=== PATIENT | male | born 2000 | race Caucasian/White ===

== ENCOUNTER 2022-09-23 11:06 | Day surgery (SDC) | payer OTHER ==
[~2022-09-23] VITALS: Ht 162.6 cm; Wt 82.6 kg
[~2022-09-23 11:06] MED LIST: SERT25; [UNRECOGNIZED DRUG - OTHER]
--- NOTE | 2022-09-23 11:31 | NUR ---
Patient confirms NPO status and agrees with scheduled surgery. Pre-Op teaching done. Pt verbalizes understanding. Patient States Post-Procedure ride home has been arranged. History, Chart, Medications and Allergies reviewed before start of procedure.
[2022-09-23] MEDS ORDERED: Budeprion Xl300 MG PO (11:36)
--- NOTE | 2022-09-23 12:23 | NUR ---
2 MISSED ATTEMPTS BY ORD.RMA L FORE ARM, R HAND
--- NOTE | 2022-09-23 13:41 | NUR ---
09/23/22 1341 Inge Bosch 1MG EPIENEPHRINE ADDED TO 3000ML NACL FOR IRRIGATION
--- NOTE | 2022-09-23 17:35 | NUR ---
PT ARRIVED TO FLOOR FROM PACU. TRANSFERED TO BED FROM [facility] WITH SLIDE SHEET. TOLERATED WELL, REPORTS PAIN LEVEL OF 1-2 OUT OF 10. JOES WRAP TO LLE IS CDI. PT HAS FULL SENSATION IN LEFT FOOT AND MOVES TOES WELL, BRISK CAP REFILL AT THIS TIME. PT SATS MID 90'S ON ROOM AIR. HR IN THE 120'S. PT REPORTS FEELING TIRED AT THIS TIME, CALL LIGHT PROVIDED FOR PATIENT, HE IS ATTEMPTING TO SLEEP AT THIS TIME.
--- NOTE | 2022-09-24 04:42 | NUR ---
SHIFT SUMMARY PT POD [address] ORIF [address] DR[address] HOOVER AFTER SUSTAINING A GLF WHILE RIDING HIS SCOOTER. JOSE WRAP IN PLACE POST SURGERY. DRESSING IS C/D/I. PT REPORTS FULL SENSATION AT THIS TIME AND IS ABLE TO WIGGLE TOES. FEET WARM. PAIN IS WELL MANAGED WITH MEDS PER EMAR. PT HAD SOME POST OP NAUSEA THAT HAS SINCE RESOLVED. PT TOLERATING PO INTAKE. VITALS ARE STABLE, AND PT VOIDING.
[2022-09-24] MEDS ORDERED: HYDR1TAB94 PO (17:05)
== END 2022-09-24 17:31 | disposition home or self-care (01) ==
LOC: ORSCMMR 11:06 → ORD 12:30 → ORSCMMR 12:30 → SURS 17:21 → ORSCMMR 09-24 17:31
PROVIDERS: Orthopaedic Surgery
PROC: 0SQD4ZZ Repair Left Knee Joint, Percutaneous Endoscopic Approach (ICD-10-PCS; principal; 2022-09-23 12:30)
DX: S82.142A Displaced bicondylar fracture of left tibia, initial encounter for closed fracture (principal); F32.A Depression, unspecified; Z79.899 Other long term (current) drug therapy
CPT/HCPCS: 73562-LT; 73700; 97110; 97161; 97530; A9270; C1713; J0171; J0690; J1100; J1885; J2270; J2405; J2704; J3010; J7050; J7120

== ENCOUNTER 2022-09-27 10:30 | Day surgery (SDC) | payer OTHER ==
[~2022-09-27] VITALS: Ht 162.6 cm; Wt 83.5 kg
[~2022-09-27 10:30] MED LIST changes: +Budeprion Xl300 MG PO; +HYDR1TAB94 PO
--- NOTE | 2022-09-27 15:21 | NUR ---
09/27/22 1521 Nilesh Baltazar NO SPECIMENS PER
--- NOTE | 2022-09-27 15:29 | NUR ---
OPENED EYES ON OWN I ASK HIM ABOUT PAIN AND HE SHUT EYES AND SHOOK HEAD NO NO VERBAL RESPONSE TO QUESTIONS
--- NOTE | 2022-09-27 16:59 | NUR ---
PATIENT AWAKE AND ALERT, VITALS STABLE, PAIN IS IN MODERATE CONTROL. INSTRUCTIONS GIVEN TO PATIENT AND PATTIE CANNON. ALL QUESTIONS ANSWERED. PT HAS CRUTCHES AND WALKER AT HOME. PAIN MEDS GIVEN PRIOR TO DISCHARGE.
== END 2022-09-27 17:20 | disposition home or self-care (01) ==
LOC: ORSCMMR 10:30
PROVIDERS: Orthopaedic Surgery
PROC: 0QS Lower Bones, Reposition (ICD-10-PCS; principal; 2022-09-27 12:00)
PROC: 0SCD4ZZ Extirpation of Matter from Left Knee Joint, Percutaneous Endoscopic Approach (ICD-10-PCS; principal; 2022-09-27 12:00)
DX: S82.142D Displaced bicondylar fracture of left tibia, subsequent encounter for closed fracture with routine healing (principal); F32.A Depression, unspecified; Z79.899 Other long term (current) drug therapy
CPT/HCPCS: 73560-LT; A9270; J0690; J1885; J2250; J2405; J2704; J2795; J3010; J7120

== ENCOUNTER → 2024-09-02 | Outpatient (CLI) | payer OTHER ==
[2024-09-02 19:44] LABS: U Amphetamine Screen Not Detected; U Barbituate Screen Not Detected; U Benzodiazapine Screen Not Detected; U Buprenorphine Screen Not Detected; U Cannabinoids Screen Not Detected; U Cocaine Screen Not Detected; U Methadone Screen Not Detected; U Methamphetamine Screen Not Detected; U Opiates Screen Not Detected; U Oxycodone Screen Not Detected; U Phencyclidine Screen Not Detected
== END ==
LOC: LAB 16:45 → LAB SHORT 16:45
PROVIDERS: Family Medicine
DX: F90.1 Attention-deficit hyperactivity disorder, predominantly hyperactive type (principal); Z79.899 Other long term (current) drug therapy

== ENCOUNTER → 2025-02-27 | Outpatient (CLI) | payer OTHER ==
[2025-02-27 19:38] LABS: U Amphetamine Screen Not Detected; U Barbituate Screen Not Detected; U Benzodiazapine Screen Not Detected; U Buprenorphine Screen Not Detected; U Cannabinoids Screen Not Detected; U Cocaine Screen Not Detected; U Methadone Screen Not Detected; U Methamphetamine Screen Not Detected; U Opiates Screen Not Detected; U Oxycodone Screen Not Detected; U Phencyclidine Screen Not Detected
== END ==
LOC: LAB SHORT 17:21 → LAB 17:21
PROVIDERS: Family Medicine
DX: F90.1 Attention-deficit hyperactivity disorder, predominantly hyperactive type (principal)
CPT/HCPCS: G0480

== ENCOUNTER → 2025-10-27 | Outpatient (CLI) | payer OTHER ==
[2025-10-27 18:17] LABS: U Amphetamine Screen Not Detected; U Barbiturate Screen Not Detected; U Benzodiazapine Screen Not Detected; U Buprenorphine Screen Not Detected; U Cannabinoids Screen Not Detected; U Cocaine Screen Not Detected; U Methadone Screen Not Detected; U Methamphetamine Screen Not Detected; U Opiates Screen Not Detected; U Oxycodone Screen Not Detected; U Phencyclidine Screen Not Detected
== END ==
LOC: LAB SHORT 15:31 → LAB 15:31
PROVIDERS: Family Medicine
DX: F90.1 Attention-deficit hyperactivity disorder, predominantly hyperactive type (principal)